=== PATIENT | female | born 1995 | race Caucasian/White ===

== ENCOUNTER 2021-01-14 18:24 | Outpatient (CLI) | payer OTHER ==
[~2021-01-14 18:24] MED LIST: COLACE 100MG C100 MG PO; KEFLEX500 MG PO; OMNICEF 300 MG300 MG PO; PHENERGAN 12.12.5 MG PR; ZOFRAN 4 MG TAB4 MG PO
[2021-01-14 19:58] LABS: HEMOGLOBIN 10.8 gm/dl (12.3-15.3); RED BLOOD COUNT 3.94 M/UL (4.00-5.10); WHITE BLOOD COUNT 9.1 K/UL (4.5-11.0)
[2021-01-14 20:14] LABS: BUN/CREATININE RATIO 15 (0-10)
[2021-01-14] MEDS ORDERED: MACROBID 100 M100 MG PO (21:15)
== END 2021-01-14 23:59 | disposition home or self-care (01) ==
LOC: GENOP 18:24
PROVIDERS: Obstetrics & Gynecology
DX: O12.03 Gestational edema, third trimester (principal); O23.43 Unspecified infection of urinary tract in pregnancy, third trimester; O99.891 Other specified diseases and conditions complicating pregnancy; R51.9 Headache, unspecified; R42 Dizziness and giddiness; H53.8 Other visual disturbances; O99.283 Endocrine, nutritional and metabolic diseases complicating pregnancy, third trimester; E03.9 Hypothyroidism, unspecified; Z3A.36 36 weeks gestation of pregnancy; Z79.899 Other long term (current) drug therapy
CPT/HCPCS: 36415; 80053; 81001; 82570; 83615; 84156; 84550; 85025; 87086; 96360; 96361; 96372; J0696; J7120

== ENCOUNTER 2021-01-21 17:05 | Outpatient (CLI) | payer OTHER ==
[~2021-01-21 17:05] MED LIST changes: +MACROBID 100 M100 MG PO
[2021-01-21 21:00] LABS: HEMOGLOBIN 10.5 gm/dl (12.3-15.3); RED BLOOD COUNT 3.86 M/UL (4.00-5.10); WHITE BLOOD COUNT 9.2 K/UL (4.5-11.0)
== END 2021-01-22 08:50 | disposition home or self-care (01) ==
LOC: GENOP 17:05
PROVIDERS: Obstetrics & Gynecology
DX: O62.9 Abnormality of forces of labor, unspecified (principal); O99.891 Other specified diseases and conditions complicating pregnancy; M54.5 Low back pain; Z20.822 Contact with and (suspected) exposure to COVID-19; Z3A.37 37 weeks gestation of pregnancy
CPT/HCPCS: 36415; 81001; 85025; 96360; 96361; J7120; U0002

== ENCOUNTER 2021-02-04 05:37 | Inpatient (IN) | payer OTHER ==
[~2021-02-04] VITALS: Ht 157.5 cm; Wt 73.9 kg
[2021-02-04 07:14] LABS: HEMOGLOBIN 10.2 gm/dl (12.3-15.3); RED BLOOD COUNT 3.89 M/UL (4.00-5.10); WHITE BLOOD COUNT 7.4 K/UL (4.5-11.0)
[2021-02-04] MEDS ORDERED: SYNTHROID25 MCG PO (07:36)
[2021-02-04] MEDS ORDERED: COLACE 100MG C100 MG PO (10:42)
[2021-02-04] MEDS ORDERED: IBUPROFEN600 MG PO (10:42)
[2021-02-05 06:41] LABS: HEMOGLOBIN 9.4 gm/dl (12.3-15.3)
== END 2021-02-05 14:46 | disposition home or self-care (01) | DRG 807 ==
LOC: OB 05:37
PROVIDERS: Obstetrics & Gynecology; ADMIT Obstetrics & Gynecology
PROC: 10E0XZZ Delivery of Products of Conception, External Approach (ICD-10-PCS; principal; 2021-02-04)
PROC: 10907ZC Drainage of Amniotic Fluid, Therapeutic from Products of Conception, Via Natural or Artificial Opening (ICD-10-PCS; 2021-02-04)
PROC: 3E033VJ Introduction of Other Hormone into Peripheral Vein, Percutaneous Approach (ICD-10-PCS; 2021-02-04)
PROC: 4A1HXCZ Monitoring of Products of Conception, Cardiac Rate, External Approach (ICD-10-PCS; 2021-02-04)
DX: O70.1 Second degree perineal laceration during delivery (principal); Z37.0 Single live birth; Z3A.39 39 weeks gestation of pregnancy; Z20.822 Contact with and (suspected) exposure to COVID-19
CPT/HCPCS: 36415; 51702; 82800; 85014; 85018; 85025; J0595; J2795; J3010; J7120; U0003

== ENCOUNTER 2021-02-10 00:56 | Observation (INO) | payer OTHER ==
[~2021-02-10 00:56] MED LIST changes: +IBUPROFEN600 MG PO; +SYNTHROID25 MCG PO
[2021-02-10 01:22] LABS: HEMOGLOBIN 12.5 gm/dl (12.3-15.3); RED BLOOD COUNT 4.74 M/UL (4.00-5.10); WHITE BLOOD COUNT 10.1 K/UL (4.5-11.0)
[2021-02-10 01:39] LABS: BUN/CREATININE RATIO 15 (0-10)
[2021-02-11] MEDS ORDERED: LABETALOL HCL200 MG PO (10:48)
== END 2021-02-11 12:38 | disposition home or self-care (01) ==
LOC: ER1 00:56 → CDU 02:12 → OB 03:00
PROVIDERS: Physician Assistant; ADMIT Obstetrics & Gynecology
DX: O14.95 Unspecified pre-eclampsia, complicating the puerperium (principal); O99.285 Endocrine, nutritional and metabolic diseases complicating the puerperium; O99.893 Other specified diseases and conditions complicating puerperium; O90.81 Anemia of the puerperium; I16.0 Hypertensive urgency; E03.9 Hypothyroidism, unspecified; D64.9 Anemia, unspecified; Z87.891 Personal history of nicotine dependence; R07.89 Other chest pain; Z20.822 Contact with and (suspected) exposure to COVID-19
CPT/HCPCS: 71045; 80053; 81001; 82550; 82553; 83735; 83874; 83880; 84484; 85025; 87086; 93005; 96374; 96376; 99284; G0378; J0610; J3475; J7030; Q0177; U0002

== ENCOUNTER 2021-03-19 14:38 | Emergency (ER) | payer OTHER ==
[~2021-03-19 14:38] MED LIST changes: +LABETALOL HCL200 MG PO
[2021-03-19 15:13] LABS: HEMOGLOBIN 12.3 gm/dl (12.3-15.3); RED BLOOD COUNT 4.55 M/UL (4.00-5.10); WHITE BLOOD COUNT 5.9 K/UL (4.5-11.0)
[2021-03-19 15:45] LABS: BUN/CREATININE RATIO 10 (0-10)
== END 2021-03-19 18:25 | disposition home or self-care (01) ==
LOC: ER1 14:38
DX: R07.9 Chest pain, unspecified (principal); F17.210 Nicotine dependence, cigarettes, uncomplicated
CPT/HCPCS: 71045; 80053; 81001; 82550; 82553; 83874; 84439; 84443; 84484; 85025; 85379; 93005; 93242; 99285

== ENCOUNTER 2021-03-26 23:58 | Emergency (ER) | payer OTHER | END 2021-03-27 00:24 | disposition left against medical advice (07) | LOC: ER1 23:58 | DX: Z53.21 Procedure and treatment not carried out due to patient leaving prior to being seen by health care provider (principal) ==

== ENCOUNTER 2021-03-27 05:57 | Emergency (ER) | payer OTHER ==
[2021-03-27 07:14] LABS: HEMOGLOBIN 12.6 gm/dl (12.3-15.3); RED BLOOD COUNT 4.78 M/UL (4.00-5.10); WHITE BLOOD COUNT 7.6 K/UL (4.5-11.0)
[2021-03-27 07:39] LABS: BUN/CREATININE RATIO 14 (0-10)
== END 2021-03-27 09:15 | disposition home or self-care (01) ==
LOC: ER1 05:57
PROVIDERS: Physician Assistant
DX: F41.9 Anxiety disorder, unspecified (principal); R00.2 Palpitations; F17.200 Nicotine dependence, unspecified, uncomplicated
CPT/HCPCS: 71045; 80053; 82550; 82553; 83874; 84439; 84443; 84484; 85025; 93005; 99284

== ENCOUNTER 2021-03-29 08:42 | Emergency (ER) | payer OTHER ==
[2021-03-29 09:51] LABS: HEMOGLOBIN 12.7 gm/dl (12.3-15.3); RED BLOOD COUNT 4.89 M/UL (4.00-5.10); WHITE BLOOD COUNT 5.9 K/UL (4.5-11.0)
[2021-03-29 10:17] LABS: BUN/CREATININE RATIO 16 (0-10)
[2021-03-29] MEDS ORDERED: MACRODANTIN100 MG PO (14:04)
== END 2021-03-29 14:10 | disposition home or self-care (01) ==
LOC: ER1 08:42
PROVIDERS: Emergency Medicine
DX: O90.89 Other complications of the puerperium, not elsewhere classified (principal); R00.2 Palpitations; O86.20 Urinary tract infection following delivery, unspecified; F17.210 Nicotine dependence, cigarettes, uncomplicated; Z20.822 Contact with and (suspected) exposure to COVID-19
CPT/HCPCS: 71045; 80053; 81001; 82550; 82553; 83605; 83690; 84484; 84703; 85025; 87086; 93005; 96374; 99285; J2405; Q9967; U0002

== ENCOUNTER 2021-04-09 21:20 | Emergency (ER) | payer OTHER ==
[2021-04-09 22:38] LABS: HEMOGLOBIN 12.1 gm/dl (12.3-15.3); RED BLOOD COUNT 4.34 M/UL (4.00-5.10); WHITE BLOOD COUNT 7.7 K/UL (4.5-11.0)
[2021-04-09 23:19] LABS: BUN/CREATININE RATIO 13 (0-10)
== END 2021-04-10 00:59 | disposition home or self-care (01) ==
LOC: ER1 21:20
PROVIDERS: Physician Assistant
DX: R07.89 Other chest pain (principal); E87.6 Hypokalemia; N39.0 Urinary tract infection, site not specified
CPT/HCPCS: 71045; 80053; 81001; 82550; 82553; 83690; 83735; 83874; 83880; 84439; 84443; 84484; 84703; 85025; 87086; 93005; 99285

== ENCOUNTER → 2021-04-09 | Outpatient (CLI) | payer OTHER ==
[~2021-04-09] MED LIST changes: +MACRODANTIN100 MG PO
== END ==
LOC: EXRD 04-08 09:00 → KOH-I 04-15 10:00
DX: R10.13 Epigastric pain (principal); R11.0 Nausea
CPT/HCPCS: 76700

== ENCOUNTER → 2021-04-13 | Outpatient (CLI) | payer OTHER | LOC: HEART 5 14:08 | DX: R07.9 Chest pain, unspecified (principal); R00.2 Palpitations; O15.2 Eclampsia complicating the puerperium | CPT/HCPCS: 93306 ==

== ENCOUNTER 2021-04-18 18:50 | Emergency (ER) | payer OTHER ==
[2021-04-18 20:03] LABS: HEMOGLOBIN 12.6 gm/dl (12.3-15.3); RED BLOOD COUNT 4.44 M/UL (4.00-5.10); WHITE BLOOD COUNT 5.8 K/UL (4.5-11.0)
[2021-04-18 20:49] LABS: BUN/CREATININE RATIO 16 (0-10)
== END 2021-04-18 22:05 | disposition home or self-care (01) ==
LOC: ER1 18:50
PROVIDERS: Physician Assistant
DX: R07.2 Precordial pain (principal); R00.2 Palpitations; E03.9 Hypothyroidism, unspecified
CPT/HCPCS: 71045; 80053; 82550; 82553; 83874; 84439; 84443; 84484; 85025; 85379; 93005; 99285

== ENCOUNTER 2021-04-21 13:34 | Emergency (ER) | payer OTHER ==
[2021-04-21 14:37] LABS: HEMOGLOBIN 12.8 gm/dl (12.3-15.3); RED BLOOD COUNT 4.47 M/UL (4.00-5.10); WHITE BLOOD COUNT 6.2 K/UL (4.5-11.0)
[2021-04-21 15:07] LABS: BUN/CREATININE RATIO 12 (0-10)
== END 2021-04-21 16:21 | disposition home or self-care (01) ==
LOC: ER1 13:34
PROVIDERS: Physician Assistant Medical
DX: R07.9 Chest pain, unspecified (principal); R42 Dizziness and giddiness; R00.2 Palpitations; E03.9 Hypothyroidism, unspecified; Z20.822 Contact with and (suspected) exposure to COVID-19
CPT/HCPCS: 71045; 80053; 82550; 82553; 83874; 84439; 84443; 84484; 85025; 85379; 93005; 93242; 99285; U0002

== ENCOUNTER 2021-04-29 08:32 | Emergency (ER) | payer OTHER ==
[2021-04-29] MEDS ORDERED: MOTION SICKNESS25 MG PO (13:15)
== END 2021-04-29 13:25 | disposition home or self-care (01) ==
LOC: ER1 08:32
DX: R07.9 Chest pain, unspecified (principal); R51.9 Headache, unspecified; R42 Dizziness and giddiness
CPT/HCPCS: 71045; 93005; 99285

== ENCOUNTER → 2021-05-04 | Outpatient (CLI) | payer OTHER ==
[~2021-05-04] MED LIST changes: +MOTION SICKNESS25 MG PO
== END ==
LOC: HEART 5 05-03 11:00
DX: R07.9 Chest pain, unspecified (principal); R00.2 Palpitations

== ENCOUNTER 2021-05-21 19:08 | Emergency (ER) | payer OTHER ==
[2021-05-21 20:23] LABS: BUN/CREATININE RATIO 13 (0-10)
[2021-05-21 20:58] LABS: HEMOGLOBIN 13.6 gm/dl (12.3-15.3); RED BLOOD COUNT 4.82 M/UL (4.00-5.10); WHITE BLOOD COUNT 6.3 K/UL (4.5-11.0)
== END 2021-05-21 21:25 | disposition home or self-care (01) ==
LOC: ER1 19:08
PROVIDERS: Physician Assistant
DX: R07.9 Chest pain, unspecified (principal)
CPT/HCPCS: 71045; 80048; 84484; 85025; 85379; 93005; 99285

== ENCOUNTER → 2021-05-28 | Outpatient (CLI) | payer OTHER | LOC: EMI 14:34 | DX: R51.9 Headache, unspecified (principal); R42 Dizziness and giddiness | CPT/HCPCS: 70551 ==

== ENCOUNTER 2021-07-26 07:40 | Emergency (ER) | payer OTHER ==
[2021-07-26 08:41] LABS: HEMOGLOBIN 14.2 gm/dl (12.3-15.3); RED BLOOD COUNT 4.74 M/UL (4.00-5.10); WHITE BLOOD COUNT 6.9 K/UL (4.5-11.0)
[2021-07-26 09:12] LABS: BUN/CREATININE RATIO 26 (0-10)
[2021-07-26] MEDS ORDERED: ZOFRAN4 MG PO (09:33)
== END 2021-07-26 09:49 | disposition home or self-care (01) ==
LOC: ER1 07:40
PROVIDERS: Physician Assistant
DX: R10.9 Unspecified abdominal pain (principal); E07.9 Disorder of thyroid, unspecified
CPT/HCPCS: 80053; 81001; 83690; 84703; 85025; 87086; 96374; 96375; 99284; J1885; J2405; J7030

== ENCOUNTER → 2021-08-09 | Outpatient (CLI) | payer OTHER ==
[~2021-08-09] MED LIST changes: +ZOFRAN4 MG PO
== END ==
LOC: EXRD 13:46
DX: E04.9 Nontoxic goiter, unspecified (principal)
CPT/HCPCS: 76536

== ENCOUNTER → 2021-10-21 | Outpatient (CLI) | payer BC, OTHER | LOC: US 10-15 09:30 → EXRD 07:33 | DX: R10.11 Right upper quadrant pain (principal) | CPT/HCPCS: 76705 ==